=== PATIENT | female | born 1965 | race Two or more races ===

== ENCOUNTER 2019-06-02 18:26 | Emergency (ER) | payer SELFPAY ==
[~2019-06-02] VITALS: Ht 154.9 cm; Wt 78.4 kg
[2019-06-02] MEDS ORDERED: ALBU1.25 NEB (18:53)
--- NOTE | 2019-06-02 18:53 | NUR ---
PT CO OF RIGHT UPPER AND LOWER QUADRANT PAIN WELL RIGHT FLANK PAIN THAT STARTED AROUND 12 TODAY. HX OF KIDNEY STONES. IS BEDSIDE. 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 BLANKET PROVIDED. CALL LIGHT WITHIN REACH Addendum: 06/02/19 at 1903 by [facility] LEFT SIDE UPPER AND LOWER QUADRANT PAIN ALONG WITH LEFT SIDE FLANK PAIN
[2019-06-02] MEDS ORDERED: MORPHINE SULFATE 4 MG/ML, 1ML IVPush PRN (19:00)
[2019-06-02] MEDS ORDERED: KETOROLAC 30 MG/1 ML IVPush ONE (19:00)
[2019-06-02] MEDS ORDERED: SODIUM CHLORIDE FLUSH 10ML SYR IVF ONE (19:00)
[2019-06-02 19:08] LABS: MEAN CORPUSCULAR HEMOGLOBIN 24.9 pg (27.0-34.8); MEAN CORPUSCULAR HGB CONC 32.4 g/dL (32.4-35.8); MEAN CORPUSCULAR VOLUME 76.8 fL (80-100); MEAN PLATELET VOLUME 11.4 fL (7.4-10.4); PLATELET COUNT 143 x10^3/uL (130-400); RED BLOOD COUNT 4.77 x10^6/uL (3.82-5.3); RED CELL DISTRIBUTION WIDTH 15.3 % (9.6-15.2)
[2019-06-02] MEDS ORDERED: KETOROLAC 30 MG/1 ML ONE (19:12)
[2019-06-02] MEDS ORDERED: MORPHINE SULFATE 4 MG/ML, 1ML ONE (19:13)
[2019-06-02 19:20] LABS: ALANINE AMINOTRANSFERASE 43 U/L (12-78); ALBUMIN 3.7 g/dL (3.4-5.0); ANION GAP 6 mmol/L (5-15); CALCIUM 8.8 mg/dL (8.5-10.1); CHLORIDE 111 mmol/L (98-107); CREATININE 0.94 mg/dL (0.55-1.02)
[2019-06-02 19:22] LABS: ALKALINE PHOSPHATASE 130 U/L (45-117); BILIRUBIN,TOTAL 0.3 mg/dL (0.2-1.0); TOTAL PROTEIN 7.1 g/dL (6.4-8.2)
[2019-06-02 19:28] LABS: BASOPHILS # (AUTO) 0.06 x10^3/uL (0-0.1); BASOPHILS % (AUTO) 1 % (0-1); EOSINOPHILS # (AUTO) 0.54 x10^3/uL (0-0.4); EOSINOPHILS % (AUTO) 6 % (1-7); LYMPHOCYTES # (AUTO) 2.57 x10^3/uL (1-3.4); LYMPHOCYTES % (AUTO) 29 % (22-44); MD SCAN; MONOCYTES # (AUTO) 0.72 x10^3/uL (0.2-0.8); MONOCYTES % (AUTO) 8 % (2-9); NEUTROPHILS # (AUTO) 5.03 x10^3/uL (1.8-6.8); NEUTROPHILS % (AUTO) 56 % (42-75)
--- NOTE | 2019-06-02 19:38 | NUR ---
191: ASSUMED CARE OF PT USING AIDET. REVIEWED POC W/ PT AND FAMILY INCLUDING MEDICATIONS, PENDING TESTS AND CHART REVIEW BY ERP. PT C/O INCREASING LEFT FLANK PAIN. PIV PLACED IN RAC. 1913: MEDICATED ORDERED. URINE COLLECTED AND SENT TO LAB. PT DENIED FURTHER QUESTIONS/CONCERNS/COMPLAINTS AT THIS TIME. CALL LIGHT IN REACH.
[2019-06-02 19:55] LABS: HCG UR SG 1.014 (1.003-1.030); MICROSCOPIC AUTO
[2019-06-02 20:04] LABS: CULTURE INDICATED? NO
--- NOTE | 2019-06-02 20:36 | NUR ---
PT RESTING QUIETLY AT THIS TIME W/ FAMILY AT BEDSIDE. PT REPORTS IMPROVEMENT IN PAIN. PT AND FAMILY AWARE WAITING FOR FINAL TEST RESULTS, DENY ANY NEEDS AT THIS TIME.
[2019-06-02 22:10] VITALS: BP 147/83
--- NOTE | 2019-06-02 22:12 | NUR ---
REVIEWED DISCHARGE INSTRUCTIONS AND PRESCRIPTIONS X 2 W/ PT AND FAMILY MEMBERS, VERBALZIED UNDERSTANDING TO INFORMATION PROVIDED INCLUDING PRECAUTIONS W/ [facility], FOLLOW UP CARE AND RETURN PRECAUTIONS, DENIED QUESTIONS/CONCERNS. PT AMBULATED FROM ED W/ FAMILY, NO SIGNS OF DISTRESS NOTED.
== END 2019-06-02 22:14 | disposition home or self-care (01) ==
LOC: ED 22:05
DX: N20.1 Calculus of ureter (principal); R10.32 Left lower quadrant pain; R31.9 Hematuria, unspecified; J45.909 Unspecified asthma, uncomplicated
CPT/HCPCS: 36415; 74176; 80053; 81001; 81025; 83690; 85025; 96374; 96375; 99284; J1885; J2270